=== PATIENT | male | born 1985 | race Caucasian/White ===

== ENCOUNTER → 2018-07-19 08:47 | Outpatient (CLI) | payer OTHER, SELFPAY ==
[2018-07-19 09:39] LABS: BUN Creatinine Ratio 15.6 (6-22); Blood Urea Nitrogen 14 mg/dL (9-20); Calcium 9.9 mg/dL (8.4-10.2); Carbon Dioxide 25 mmol/L (22-32); Chloride 104 mmol/L (98-107); Estimated Glomerular Filt Rate > 60.0 mL/min (>60); Glucose 88 mg/dL (70-100); HEMOLYSIS < 15 (0-50); Potassium 4.2 mmol/L (3.4-5.1); Sodium 139 mmol/L (137-145)
== END ==
PROVIDERS: Visit Provider Nurse Practitioner Family
DX: I10 Essential (primary) hypertension (principal)
CPT/HCPCS: 36415; 80048

== ENCOUNTER → 2019-03-07 09:11 | Outpatient (CLI) | payer OTHER, SELFPAY ==
[2019-03-07 10:12] LABS: Alanine Aminotransferase 27 IU/L (21-72); Albumin 4.1 g/dL (3.5-5.0); Albumin Globulin Ratio 1.5 (1.0-2.8); Alkaline Phosphatase 65 U/L (38-126); Aspartate Aminotransferase 22 IU/L (17-59); BUN Creatinine Ratio 17.5 (6-22); Bilirubin Total 0.5 mg/dL (0.2-1.3); Blood Urea Nitrogen 14 mg/dL (9-20); Calcium 10.2 mg/dL (8.4-10.2); Carbon Dioxide 24 mmol/L (22-32); Chloride 107 mmol/L (98-107); Cholesterol 139 mg/dL (140-199); Estimated Glomerular Filt Rate > 60.0 mL/min (>60); Globulin 2.8 g/dL (1.7-4.1); Glucose 101 mg/dL (70-100); HDL Cholesterol 33 mg/dL (40-60); HEMOLYSIS < 15 (0-50); LDL Cholesterol Calculated 94 mg/dL (<100); Potassium 4.3 mmol/L (3.4-5.1); Sodium 140 mmol/L (137-145); Total Protein 6.9 g/dL (6.3-8.2); Triglycerides 58 mg/dL (35-150)
== END ==
PROVIDERS: PCP Nurse Practitioner Family; Visit Provider Nurse Practitioner Family
DX: I10 Essential (primary) hypertension (principal)
CPT/HCPCS: 36415; 80053; 80061

== ENCOUNTER → 2019-10-10 09:30 | Outpatient (CLI) | payer OTHER, SELFPAY ==
[2019-10-10 10:05] LABS: Alanine Aminotransferase 43 IU/L (<50); Albumin 4.2 g/dL (3.5-5.0); Albumin Globulin Ratio 1.5 (1.0-2.8); Alkaline Phosphatase 55 U/L (38-126); Aspartate Aminotransferase 22 IU/L (17-59); Bilirubin Total 0.8 mg/dL (0.2-1.3); Blood Urea Nitrogen 17 mg/dL (9-20); Calcium 10.2 mg/dL (8.4-10.2); Carbon Dioxide 24 mmol/L (22-32); Chloride 106 mmol/L (98-107); Cholesterol 186 mg/dL (140-199); Estimated Glomerular Filt Rate > 60.0 mL/min (>60); Globulin 2.8 g/dL (1.7-4.1); Glucose 101 mg/dL (70-100); HDL Cholesterol 45 mg/dL (40-60); HEMOLYSIS < 15 (0-50); LDL Cholesterol Calculated 128 mg/dL (<100); Potassium 4.3 mmol/L (3.4-5.1); Sodium 137 mmol/L (137-145); Triglycerides 64 mg/dL (35-150)
== END ==
PROVIDERS: PCP Internal Medicine; Referring Provider Internal Medicine; Visit Provider Internal Medicine
DX: I10 Essential (primary) hypertension (principal); E78.6 Lipoprotein deficiency
CPT/HCPCS: 36415; 80053; 80061

== ENCOUNTER → 2020-05-07 11:46 | Outpatient (CLI) | payer OTHER, SELFPAY ==
[2020-05-07 13:15] LABS: Influenza A - CEPHEID Flu A NEGATIVE (NEGATIVE); Influenza B - CEPHEID Flu B NEGATIVE (NEGATIVE)
[2020-05-07 13:36] LABS: COVID19 -Nasal RAPID Negative (Negative)
== END ==
PROVIDERS: PCP Internal Medicine; Visit Provider Physician Assistant
DX: R68.89 Other general symptoms and signs (principal)
CPT/HCPCS: 87502; 87635

== ENCOUNTER → 2020-05-07 14:51 | Outpatient (CLI) | payer OTHER, SELFPAY ==
--- NOTE | 2020-05-07 14:53 | DI.RAD.S_ITS ---
PROCEDURE: XR CHEST 2V INDICATIONS: fever, cough, r/o pneumonia. COVID/flu negative TECHNIQUE: 2 views of the chest were acquired. COMPARISON: None. FINDINGS: Surgical changes and devices: None. Lungs and pleura: Right upper lobe consolidation. No pleural effusions or pneumothorax. Mediastinum: Mediastinal contours are normal. Heart size is normal. Bones and chest wall: No suspicious bony abnormalities. Soft tissues appear unremarkable. IMPRESSION: Right upper lobe airspace consolidative opacity. Findings could be reflective of either viral or bacterial pneumonia. Follow-up to resolution recommended. Dictated by: Tavon Alvarado M.D. on 05/07/2020 at 15:02 Approved by: Tavon Alvarado M.D. on 05/07/2020 at 15:02
== END ==
PROVIDERS: PCP Internal Medicine; Referring Provider Physician Assistant; Visit Provider Physician Assistant
DX: R05 Cough (principal); R50.9 Fever, unspecified; Z03.818 Encounter for observation for suspected exposure to other biological agents ruled out; R68.89 Other general symptoms and signs
CPT/HCPCS: 71046; 87502; 87635

== ENCOUNTER → 2020-07-25 15:47 | Outpatient (CLI) | payer OTHER, SELFPAY ==
--- NOTE | 2020-07-25 15:53 | DI.RAD.S_ITS ---
PROCEDURE: XR HIP W PEL IF DONE LT 2V INDICATIONS: LEFT HIP PAIN, LEG LENGTH DISCREPANCY TECHNIQUE: AP pelvis with lateral view(s) of the left hip(s). COMPARISON: None. FINDINGS: Bones: No fractures or dislocations. Pelvic ring appears intact. No suspicious bony lesions. Soft tissues: The visualized bowel gas pattern is normal. No suspicious soft tissue calcifications. IMPRESSION: No acute fracture. No osseous lesion. If symptoms and/or clinical suspicion for pathology persist, further assessment with repeat, or advanced imaging (e.g., CT, MRI, or bone scan) may be helpful for further assessment. Dictated by: Mary Mccullough M.D. on 07/25/2020 at 16:39 Approved by: Mary Mccullough M.D. on 07/25/2020 at 16:39
== END ==
PROVIDERS: PCP Internal Medicine; Referring Provider Internal Medicine; Visit Provider Internal Medicine
DX: M25.552 Pain in left hip (principal); M21.70 Unequal limb length (acquired), unspecified site
CPT/HCPCS: 73502

== ENCOUNTER 2020-10-12 15:15 | Outpatient (RCR) | payer OTHER, SELFPAY ==
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
--- NOTE | 2020-08-22 18:28 | PT.OPPOC ---
Physical, Occupational & Speech Therapy At [facility] Current Diagnoses Pain in left hip (08/22/20) Low back pain (08/22/20) Difficulty in walking, not elsewhere classified (08/22/20) Abnormal posture (08/22/20) Weakness (08/22/20) Visit Care Team Role Provider Type RIOS Al Attending Provider Advanced Surveillance Observer Primary Care Provider Referring Provider Specialty: Family Practice Address: [address] [place] [address] [place], [facility] Email: [email or web address] Plan Of Care PT-OP-T Assessment and Plan Start: 08/18/20 16:54 Freq: Status: Active Protocol: Document 08/22/20 09:37 [facility] (Rec: 08/22/20 10:33 [facility] [id number]) Physical Therapy Assessment Evaluation Complexity Number of Personal Factors/Comorbidities 3 or More Number of Body Systems Impaired 4 or More Clinical Presentation at Evaluation Evolving Impairments Impairments Activity Tolerance,Balance, Functional Activities, Functional Mobility,Gait,Pain, Posture,ROM,Soft Tissue Mobility,Strength Goals lifting Short Term Goal (STG) Pt will demo lifting w/good mechanics STG Duration 09/22/20 Longterm Goal (LTG) Pt will report no pain w/ lifting at work in L hip or LB . LTG Duration 10/22/20 posture Short Term Goal (STG) Pt will show improved posture by score of at least 2/5 on VCT STG Duration 09/22/20 Longterm Goal (LTG) Pt will show improved posture by score of at least 4/5 on VCT LTG Duration 10/22/20 strength Short Term Goal (STG) Pt will be indep w/HEP STG Duration 09/22/20 Ride Mechanic Goal (LTG) Pt will score at least 5/5 on all LE MMT and at least 3/5 on EFT & LPM in all planes to show imrpoved stability allowing for improved ability to do work without pain. LTG Duration 10/22/20 walking Short Term Goal (STG) Pt will be able to go up/down stairs at work without inc pain in L hip or LB STG Duration 09/22/20 Ride Mechanic Goal (LTG) Pt will be able to walk as needed for work and home activities w/o inc pain. LTG Duration 10/22/20 Assessment Summary Assessment Pt presents w/c/o L hip pain along w/R SI and LB pain w/ history of thoracic pain and B knee pain from prior injuries . He had inc back pain after a twisting and bending injury when lifting something heavy when laying on his R side and turning to his partner to pass the piece of equipment who was standing. Shortly after this, his L post & lat hip started hurting too. He has limited hip mobility on L w/ pain w/ROM and strength testing and dec overall strenth along w/dec core stability and impaired posture and gait. He would benefit from PT to work on these deficits in order to dec pain. Physical Therapy Plan Frequency and Duration Frequency of Treatment 1-2x/week Duration of Treatment 2 months Plan of Care Start Date 08/22/20 Plan of Care End Date 10/22/20 Therapeutic Interventions Therapeutic Interventions Aquatic Therapy,Balance Training,Gait Training,Home Exercise Program,Joint Mobilizations,Manual Therapy, Neuromuscular Re-education, Patient/Caregiver Education, Self-Care/Home Management,Soft Tissue Mobilization,Taping, Therapeutic Activities, Therapeutic Exercises Modalities Cold Pack/Ice Massage,Electric Stimulation,Hot Packs, Infrared Therapy,Ultrasound Next Visit Focus/Plan Next Note Type Treatment Note Next Visit Plan supine core progression, STM to LB , work on hip glides on L, work on hip abd strength as tolerated Plan of Care Dates Plan of Care Start Date 08/22/20 Plan of Care End Date 10/22/20 Electronically Signed by: Nubia Liu, PT 08/22/20 2008 Please Sign and Return: I have reviewed this Plan of Care and certify that the skilled therapy services above are required to meet the patient?s needs. Physician Signature Date Printed Name and Credentials Clinical Instructor Signature Printed Name and Credentials
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
== END 2021-02-10 07:47 | disposition home or self-care (01) ==
LOC: PHYS 15:15
PROVIDERS: PCP Internal Medicine; Referring Provider Internal Medicine; Visit Provider Internal Medicine
DX: M25.552 Pain in left hip (principal); R29.3 Abnormal posture; R26.2 Difficulty in walking, not elsewhere classified; R53.1 Weakness; M54.5 Low back pain
CPT/HCPCS: 97010; 97110; 97116; 97140; 97162; 97535

== ENCOUNTER → 2021-09-14 11:33 | Outpatient (CLI) | payer OTHER, SELFPAY ==
[2021-09-14 13:23] LABS: COVID19 -Nasal RAPID Negative (Negative)
== END ==
PROVIDERS: PCP Internal Medicine; Visit Provider Nurse Practitioner Critical Care Medicine
DX: Z20.822 Contact with and (suspected) exposure to COVID-19 (principal)
CPT/HCPCS: 87635

== ENCOUNTER → 2021-10-11 09:02 | Outpatient (CLI) | payer OTHER, SELFPAY ==
--- NOTE | 2021-10-11 09:07 | DI.RAD.S_ITS ---
PROCEDURE: XR CHEST 2V INDICATIONS: RIGHT SIDED CHEST PAIN TECHNIQUE: 2 views of the chest were acquired. COMPARISON: [facility], , XR CHEST 2V, 05/07/2020, 14:54. FINDINGS: Surgical changes and devices: None. Lungs and pleura: Lungs appear clear. The remotely seen on right upper lobe opacity is resolved. No pleural effusions or pneumothorax. Mediastinum: Mediastinal contours are normal. Heart size is normal. Bones and chest wall: No suspicious bony abnormalities. Soft tissues appear unremarkable. IMPRESSION: No acute cardiopulmonary abnormality. Dictated by: Devin Wilson M.D. on 10/11/2021 at 9:53 Approved by: Devin Wilson M.D. on 10/11/2021 at 9:54
[2021-10-11 09:27] LABS: Add Manual Diff / Slide Review NO; Basophils Absolute Auto 100 /uL (0-100); Basophils Percent Auto 0.8 % (0-2); Eosinophils Absolute Auto 300 /uL (0-450); Eosinophils Percent Auto 5.3 % (2-4); Hematocrit 41.4 % (41-53); Hemoglobin 14.4 g/dL (13.5-17.5); Lymphocytes Absolute Auto 2600 /uL (1100-4500); Lymphocytes Percent Auto 40.3 % (25-40); Mean Corpuscular HGB Conc 34.7 % (30-36); Mean Corpuscular Hemoglobin 31.7 PG (26-34); Mean Corpuscular Volume 91.2 fL (80-100); Monocytes Absolute Auto 700 /uL (0-900); Monocytes Percent Auto 10.2 % (3-14); Neutrophils Absolute Auto 2800 /uL (1500-7000); Neutrophils Percent Auto 43.4 % (50-75); Platelet Count 213 X10^3/uL (150-400); Red Blood Cell Count 4.54 X10^6/uL (4.5-5.9); Red Cell Distribution Width 13.4 % (11.6-14.8); White Blood Cell Count 6.5 X10^3/uL (4.5-11.0)
[2021-10-11 09:33] LABS: Hemoglobin A1C% w Est Avg Glu 5.4 % (4.0-6.0)
[2021-10-11 09:38] LABS: Alanine Aminotransferase 35 IU/L (<50); Albumin Globulin Ratio 1.4 (1.0-2.8); Alkaline Phosphatase 72 U/L (38-126); Aspartate Aminotransferase 23 IU/L (17-59); BUN Creatinine Ratio 15.3 (6-22); Bilirubin Total 0.5 mg/dL (0.2-1.3); Blood Urea Nitrogen 13 mg/dL (9-20); Calcium 9.4 mg/dL (8.4-10.2); Carbon Dioxide 24 mmol/L (22-32); Chloride 109 mmol/L (98-107); Cholesterol 170 mg/dL (140-199); Estimated Glomerular Filt Rate > 60 mL/min (>60); Globulin 2.8 g/dL (1.7-4.1); Glucose 104 mg/dL (70-100); HDL Cholesterol 49 mg/dL (40-60); HEMOLYSIS < 15 (0-50); LDL Cholesterol Calculated 91 mg/dL (<100); Potassium 4.2 mmol/L (3.4-5.1); Sodium 139 mmol/L (137-145); Total Protein 6.8 g/dL (6.3-8.2); Triglycerides 149 mg/dL (35-150)
[2021-10-11 11:49] LABS: Thyroid Stimulating Hormone 1.91 uIU/mL (0.47-4.68)
== END ==
PROVIDERS: PCP Internal Medicine; Referring Provider Internal Medicine; Visit Provider Internal Medicine
DX: R07.9 Chest pain, unspecified (principal); R73.9 Hyperglycemia, unspecified; I10 Essential (primary) hypertension; E66.9 Obesity, unspecified; Z72.89 Other problems related to lifestyle; E78.6 Lipoprotein deficiency; Z13.29 Encounter for screening for other suspected endocrine disorder
CPT/HCPCS: 36415; 71046; 80053; 80061; 83036; 84443; 85025

== ENCOUNTER → 2022-10-30 09:29 | Outpatient (CLI) | payer OTHER, SELFPAY ==
--- NOTE | 2022-11-06 11:36 | PM.PFT.1 ---
Pulmonary Function Test Referral & Results Date Patient Seen: 10/30/22 Results: The spirometry demonstrates an FVC of 3.43 L which is 74% of predicted. The FEV1 was measured at 2.88 L which is 77% of predicted. The FEV1/FVC ratio was 84 which is 105% of predicted. Following the administration of bronchodilator there was no notable change. Lung volumes show an SVC of 3.57 L which is 79% of predicted. The diffusing capacity was measured at 22.41 which is 85% of predicted. The maximum voluntary ventilation was reduced Interpretation: This study demonstrates mild obstructive lung disease based on reduction FEV1 although FEV1/FVC ratio is preserved. There is a mild reduction in lung volumes suggesting the presence of mild restrictive lung disease which may explain some of the abnormality in the FEV1 above There is a minimal reduction diffusing capacity suggesting the possibility of minimal disease at the capillary alveolar level, although this could also be interpreted as normal Clinical correlation suggested
== END ==
PROVIDERS: PCP Family Medicine; Referring Provider Family Medicine; Visit Provider Family Medicine
DX: J45.909 Unspecified asthma, uncomplicated (principal); F17.200 Nicotine dependence, unspecified, uncomplicated
CPT/HCPCS: 94060; 94726; 94729

== ENCOUNTER → 2024-06-11 13:25 | Outpatient (CLI) | payer OTHER, SELFPAY ==
--- NOTE | 2024-06-11 13:28 | DI.RAD.S_ITS ---
PROCEDURE: XR FOOT LT MIN 3V INDICATIONS: dorsal 1st distal MT pain/swelling jump/landing. R/O fx TECHNIQUE: 3 views of the foot were acquired. COMPARISON: None. FINDINGS: Bones: No acute displaced fracture. Plantar enthesopathy. No dislocation. 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 Soft tissues: No suspicious calcifications. IMPRESSION: No acute radiographic abnormality. If there is high concern for further derangement, consider MRI evaluation. 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 Dictated by: Geovany Mirza M.D. on 06/11/2024 at 14:10 Approved by: Geovany Mirza M.D. on 06/11/2024 at 14:11
== END ==
PROVIDERS: PCP Family Medicine; Referring Provider Physician Assistant Medical; Visit Provider Physician Assistant Medical
DX: M19.072 Primary osteoarthritis, left ankle and foot (principal); M77.52 Other enthesopathy of left foot and ankle; M79.672 Pain in left foot
CPT/HCPCS: 73630